=== PATIENT | female | born 1985 | race Caucasian/White ===

== ENCOUNTER → 2016-12-13 | Outpatient (CLI) | payer BC ==
--- NOTE | 2016-12-14 09:01 | US ---
EXAM DESCRIPTION: Abdomen,Complete: Ultrasound. CLINICAL HISTORY: GENERALIZED ABDOMINAL PAIN COMPARISON: None Available. TECHNIQUE: Transabdominal scannin-dimensional and Doppler modes. FINDINGS: The gallbladder is contracted. Patient stated she was n.p.o. for 12 hours. Common bile duct caliber 3.0 mm which is within normal limits. No stones in the visualized portion of the duct. Not tender with transducer pressure. The liver demonstrates normal echogenicity; contour of the liver capsule is smooth where seen. No fluid around the liver. Intrahepatic biliary ducts are non-dilated. Craniocaudal dimension in the mid-clavicular axis is 12.8 cm. Pancreas head, body, and tail normal in size and echogenicity. Pancreatic duct is not dilated. Abdominal aorta diameter proximal 1.8 cm. Mid 1.6 cm. Distal 1.7 cm. IVC visualized; normal caliber. Spleen normal echogenicity; long axis measurement is 9.8 cm. No fluid in the spleno-renal fossa. Right kidney measures 9.5 x 4.6 x 3.7 cm with normal mid renal cortical thickness. Echogenicity normal with no hydronephrosis, no large calcifications, and no perinephric fluid. Contour smooth. Vascularity normal. Ureter not visualized. Left kidney measures 10.9 x 5.1 x 4.9 cm with normal mid renal cortical thickness. Echogenicity normal with no hydronephrosis, no large calcifications, and no perinephric fluid. Contour smooth. Vascularity normal. Ureter not visualized. IMPRESSION: 1. Gallbladder contracted and cannot be evaluated. Consider radionuclide hepatobiliary imaging. 2. Normal ultrasound of the liver and intrahepatic and extrahepatic ducts. Normal ultrasound of the pancreas and pancreatic duct. Normal caliber of the abdominal aorta. No ascites. 3. Normal ultrasound of the spleen and bilateral kidneys. Electronically signed by: Telly Auguste MD 12/14/2016 9:00 AM CDT
== END | disposition home or self-care (01) ==
LOC: US 10:07
PROVIDERS: ATTEND Nurse Practitioner Family
DX: R10.84 Generalized abdominal pain (principal)